=== PATIENT | female | born 1980 | race African-American/Black ===

== ENCOUNTER 2016-10-11 | Inpatient (IN) ==
[2016-10-11] MEDS ORDERED: ACETAMINOPHEN 325 MG TABLET PO PRN (00:17)
[2016-10-11] MEDS ORDERED: ONDANSETRON 4 MG/2 ML VIAL IV PRN ×2 (00:17→11:39)
[2016-10-11] MEDS ORDERED: DINOPROSTONE 10 MG VAG.INSERT VAG ONE (00:17)
[2016-10-11] MEDS ORDERED: BUTORPHANOL 2 MG/ML VIAL IV PRN (00:17)
[2016-10-11] MEDS: LACTATED RINGERS 1,000 ML IV SCH ×2 (00:40→07:44)
[2016-10-11 00:52] LABS: Basophils % 0.2 % (0.0-0.8); Eosinophils # 0.1 10*3/uL (0.0-0.87); Eosinophils % 0.7 % (0.00-10.9); Hematocrit 30.8 VOL% (35.7-47.0); Immature Granulocytes % 0.4 %; Immature Granulocytes Absolute 0.04 #; Lymphocytes % 33.1 % (21.3-54.2); Mean Corpuscular HGB Conc 32.5 GM/DL (32-36); Mean Corpuscular Hemoglobin 26 PG (27-34); Mean Corpuscular Volume 79.4 FL (87-102); Mean Platelet Volume 10.2 FL (9.6-12.0); Monocytes # 0.7 10*3/uL (0.11-0.8); Monocytes % 7.6 % (1.7-12.7); NRBC # 0.04 10*3/uL; Neutrophils # 5.2 10*3/uL (1.4-7.4); Platelet Count 312 T/CUMM (130-400); Red Blood Count 3.88 MC/CUMM (3.8-5.5); Red Cell Distribution Width 15.4 % (9.3-17.3)
[2016-10-11] MEDS: AMPICILLIN INJ 2,000 MG in SODIUM CHLORIDE 0.9% 100 ML IV SCH ×2 (01:00→06:28)
[2016-10-11 01:19] LABS: Calcium 9.3 MG/DL (8.5-10.1)
[2016-10-11 01:20] LABS: Albumin 2.9 G/DL (3.4-5.0); Bilirubin,Total 0.4 MG/DL (0.2-1.0); Osmolality,Calculated 273.4 MOS/KG (273-304); Potassium 3.7 MMOL/L (3.5-5.1); Total Protein 6.7 G/DL (6.4-8.3)
[2016-10-11 01:55] LABS: INR 0.9; PT Patient Result 9.3 SECS; Partial Thromboplastin Time 26.8 SECS (0-40)
[2016-10-11] MEDS: MEPERIDINE 50 MG/1 ML VIAL IV PRN ×3 (02:23→08:11)
[2016-10-11] MEDS ORDERED: CITRIC ACID/SODIUM CITRATE 30 ML UDCUP PO PRN (06:30)
[2016-10-11] MEDS ORDERED: FAMOTIDINE 20 MG/2 ML VIAL IV PRN (06:32)
[2016-10-11] MEDS ORDERED: fentaNYL 2 MCG/ROPIV 0.2% EPID 150 ML EPIDURAL SCH (06:33)
[2016-10-11] MEDS ORDERED: ePHEDrine 50 MG/ML AMP IV PRN (06:34)
[2016-10-11] MEDS ORDERED: OXYTOCIN/LR 20 UNIT/1,000 ML BAG IV SCH (07:00)
--- NOTE | 2016-10-11 09:41 | OB/GYN History & Physical ---
History of Present Illness Chief complaint: IOL History of present illness: Ms. Le is a 36 year old female at 39 0/7 weeks admitted for elective IOL. R/B/A reviewed. Pt verbalized understanding and is willing to proceed. Uneventful course. No medical or surgical history. Previous at term without complication. Cervidil placed ~ 0040, out at 0630 when patient noted to be 3/70. Currently 7 cm/-2. AROM, meconium Home Medications Medication Instructions Recorded Confirmed Type No Known Home Medications [No 10/11/16 10/11/16 History Known Home Medications] Allergies Allergy/AdvReac Type Severity Reaction Status Date / Time Sulfa (Sulfonamide Allergy Intermediate HIVES Verified 10/11/16 00:16 Antibiotics) Medical,Surgical,& Family Hx - Family History Family History: Reports;: Family Diabetes (MGM), Family Hypertension (Mother, Sister, Brother, MGM) Denies;: Family Anesthesia Reaction, Family Cancer, Family Heart Disease, Family Hematology, Family Psychiatric Problems, Family Stroke, Additional Family History - Social History Smoking Status: Never smoker Frequency of Alcohol Use: None Type of Drug Use: None 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 - Constitutional Vitals: Vital Signs Temp Pulse Resp BP Pulse Ox 10/11/16 08:00 70 20 124/61 10/11/16 04:00 97.2 F L 85 18 121/68 10/11/16 00:08 97.5 F L 109 H 20 137/82 100 General appearance: no acute distress - Head Head exam: Present: normocephalic - Eye Eye exam: Present: EOMI Pupils: Present: MIGUELITO - Respiratory Respiratory exam: Present: clear to auscultation bilaterally - Cardiovascular Cardiovascular exam: Present: regular rate and rhythm - GI/Abdominal GI/Abdominal exam: Present: soft (gravid, FHTs reassuring, regular contractions) Assessment and Plan (1) 39 weeks gestation of Status: Acute Assessment and plan: Elective IOL Anticipate delivery Current Visit: Yes Results - Labs CBC & BMP: 10/11/16 00:38 10/11/16 00:38
--- NOTE | 2016-10-11 11:38 | Event Note ---
DELIVERY NOTE of female in the MIRACLE position with a loose nuchal cord x 2. Easily reduced. Pt progressed from 2-complete in 9 hours. Pushed for ~ 15 minutes. 6 lbs 13 oz APGARS 3/8. Meconium present Spontaneous delivery of intact placenta. EBL 300cc Two superficial lacerations not needing repair in the midline. NICU present for delivery. Infant required stimulation and O2. Mom and baby now doing well.
[2016-10-11] MEDS ORDERED: LANOLIN 50% CREAM 0.3 OZ TUBE TOP PRN (11:39)
[2016-10-11] MEDS ORDERED: MEASLES/MUMPS/RUBELLA VACCINE 0.5 ML VIAL SUBCUT ONE (11:39)
[2016-10-11] MEDS ORDERED: BISACODYL 10 MG SUPP RECTAL PRN (11:39)
[2016-10-11] MEDS ORDERED: OXYTOCIN/LR 20 UNIT/1,000 ML BAG IV ONE (11:39)
[2016-10-11] MEDS ORDERED: DIPH/TET/ACEL PERT BOOSTER VACCINE 0.5 ML VIAL IM ONE (11:39)
[2016-10-11] MEDS ORDERED: HYDROCORTISONE 2.5% RECTAL CREAM 30 GM TUBE TOP PRN (11:39)
[2016-10-11] MEDS ORDERED: RHO(D) IMMUNE GLOBULIN 300 MCG SYRINGE IM ONE (11:39)
[2016-10-11] MEDS ORDERED: WITCH HAZEL PADS 100/JAR TOP PRN (11:39)
[2016-10-11] MEDS ORDERED: BENZOCAINE 20%/MENTHOL 0.5% SPRAY 56 GM CAN TOP PRN (11:39)
[2016-10-11] MEDS ORDERED: oxyCODONE/ACETAMINOPHEN 5-325 MG TABLET PO PRN ×2 (11:39)
--- NOTE | 2016-10-11 15:16 | Anesthesia Post-Op ---
Anesthesia Post OP - Post Ansesthetic Evaluation Patient seen in post op: Yes Resp: within normal limits CV: within normal limits Mental: within normal limits Temp: within normal limits [id number]: within normal limits Nausea and Vomiting: within normal limits Pain: within normal limits
[2016-10-11] MEDS: DOCUSATE SODIUM 100 MG CAPSULE PO SCH (20:47)
[2016-10-11] MEDS: IBUPROFEN 800 MG TABLET PO PRN (22:13)
[2016-10-12 05:14] LABS: Basophils % 0.2 % (0.0-0.8); Eosinophils # 0.1 10*3/uL (0.0-0.87); Eosinophils % 0.9 % (0.00-10.9); Hematocrit 25.9 VOL% (35.7-47.0); Hemoglobin 8.1 GM/DL (12.0-16.0); Immature Granulocytes % 0.4 %; Immature Granulocytes Absolute 0.04 #; Lymphocytes # 2.8 10*3/uL (1.4-4.0); Lymphocytes % 30.2 % (21.3-54.2); Mean Corpuscular HGB Conc 31.3 GM/DL (32-36); Mean Corpuscular Hemoglobin 25 PG (27-34); Mean Corpuscular Volume 80.4 FL (87-102); Mean Platelet Volume 10.6 FL (9.6-12.0); Monocytes # 0.7 10*3/uL (0.11-0.8); Monocytes % 7.5 % (1.7-12.7); Neutrophils # 5.7 10*3/uL (1.4-7.4); Neutrophils % 60.8 % (38.7-73.9); Platelet Count 254 T/CUMM (130-400); Red Blood Count 3.22 MC/CUMM (3.8-5.5); Red Cell Distribution Width 15.5 % (9.3-17.3); White Blood Count 9.3 T/CUMM (4-12)
[2016-10-12 08:02] VITALS: BP 121/75
[2016-10-12] MEDS: DOCUSATE SODIUM 100 MG CAPSULE PO SCH (08:16)
[2016-10-12] MEDS: IBUPROFEN 800 MG TABLET PO PRN ×2 (08:20→22:52)
--- NOTE | 2016-10-12 09:13 | OB/GYN Progress Note ---
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 Absent: tenderness Results - Labs CBC & BMP: 10/12/16 04:23 10/11/16 00:38
--- NOTE | 2016-10-12 14:09 | Discharge Summary ---
Hospital Course - Hospital Course Hospital Course: Routine course. REady to go home. Diagnosis - Discharge Diagnosis (1) 39 weeks gestation of Status: Acute (2) Encounter for full-term uncomplicated delivery Status: Acute Specialty Discharge - Follow Up or Referrals Discharge Plan - Discharge Data Disposition: Disch To Home/Self Care Condition at Discharge: Stable Discharge Diet: advance to your usual diet Activity: other (Routine ) Hygiene: may shower Weight Bearing at Discharge: full weight bearing Driving: no restrictions Contact your physician if you experience:: fever over 101, Difficulty voiding, Redness or swelling - Discharge Medications No Action No Known Home Medications [No Known Home Medications] - Follow Up or Referral - Forms/Instructions Instructions: Depression (GEN), Perineal Care (DC), Vaginal Delivery (DC), Bleeding (DC) Exam - Constitutional Vitals: Period Temp Pulse Resp BP Sys/Aguirre Pulse Ox Last 24 Hr 97.2 F-97.7 F 75-95 18-20 121-144/66-90 98-100 Discharge Results Labs on day of discharge: Labs from last 24 hours 10/12/16 04:23 WBC 9.3 RBC 3.22 L Hgb 8.1 L Hct 25.9 L MCV 80.4 L MCH 25 L MCHC 31.3 L RDW 15.5 Plt Count 254 MPV 10.6 Neut % (Auto) 60.8 Lymph % (Auto) 30.2 [place]berry % (Auto) 7.5 Eos % (Auto) 0.9 Baso % (Auto) 0.2 Neut # (Auto) 5.7 Lymph # (Auto) 2.8 [place]berry # (Auto) 0.7 Eos # (Auto) 0.1 Baso # (Auto) 0.0 Immature Gran % 0.4 Nucleated RBC % 0.0 Immature Gran # 0.04 Nucleated RBCs # 0.00 DS: Provider Date of admission: 10/11/16 00:17 Primary care physician: Ebony Paul MD Attending physician on admission: Ebony Paul MD Consults: 10/11/16 11:39 Consult to Manager Talent Acquisition [CONS] Routine Consult Manager Talent Acquisition: Breast Feeding Discharging clinician: Ebony Paul MD
== END 2016-10-12 23:50 | disposition home or self-care (01) | DRG 775 ==
LOC: N.LD → OBSVTOIN → N.OB 21:55
PROVIDERS: ADMIT Obstetrics & Gynecology; ATTEND Obstetrics & Gynecology